=== PATIENT | female | born 1955 | race Caucasian/White ===

== ENCOUNTER → 2024-05-05 08:25 | Outpatient (REF) | payer MEDICARE, OTHER, SELFPAY ==
[2024-05-05 12:32] LABS: Vitamin D, 25-OH*** 41.6 ng/mL (30-80)
== END ==
LOC: HWWDC 08:25
PROVIDERS: ATTENDING PHYSICIAN Obstetrics & Gynecology; FAMILY PHYSICIAN Family Medicine
DX: Z12.31 Encounter for screening mammogram for malignant neoplasm of breast (principal); Z78.0 Asymptomatic menopausal state; E55.9 Vitamin D deficiency, unspecified
CPT/HCPCS: 36415; 77063; 77067; 82306

== ENCOUNTER 2024-12-12 06:00 | Day surgery (SDC) | payer MEDICARE, OTHER, SELFPAY ==
--- NOTE | 2024-11-15 10:55 | CM ---
CM reviewed medical records. CM confirmed demographics. Patient lives independently with . Patient denies history of VN< SNF or DME> Patient is active with her PCP. Patient uses [facility] for medication services. Patient does have a
walker, cane and plans to purchase a ice machine.
Patient has called [facility] in [place] to arrange for outpatient PT therapies.
CM will remain available for patient as questions arise.
PLAN: Home with VN, and then transition to outpatient PT.
[2024-11-23 11:41] LABS: Hematocrit 34.9 % (37.0-47.0); Hemoglobin 11.6 g/dL (12.0-16.0); Mean Corp Hgb Conc. 33.2 g/dL (33.0-37.0); Mean Corpuscular Hgb 30.9 pg (27.0-31.0); Mean Corpuscular Volume 92.8 fL (81.0-99.0); Mean Platelet Volume 10.6 fL (7.4-10.4); Platelet Count 269 10^3/uL (130-400); Red Blood Cell Count 3.76 10^6/uL (4.20-5.40); Red Cell Dist. Width 13.5 % (11.5-14.5); White Blood Cell Count 5.3 10^3/uL (4.8-10.8)
[2024-11-23 12:46] LABS: ALT (SGPT) 19 U/L (0-35); AST (SGOT) 23 U/L (14-36); Albumin 4.1 g/dl (3.5-5.0); Alkaline Phosphatase 59 U/L (38-126); Blood Urea Nitrogen 24 mg/dl (7-17); Calcium 9.3 mg/dl (8.4-10.2); Carbon Dioxide 28 mmol/L (22-30); Chloride 107 mmol/L (98-107); Glucose 129 mg/dl (70-99); Potassium 4.1 mmol/L (3.5-5.1); Sodium 142 mmol/L (135-145); Total Bilirubin 0.7 mg/dl (0.2-1.3); Total Protein 6.7 g/dl (6.3-8.2); eGFR > 60.00
[2024-11-23 12:54] LABS: Glycohemoglobin (HgbA1c) 5.4 % (4.0-5.6)
[2024-11-23 13:37] VITALS: BMI 40.7
[2024-11-23 14:17] VITALS: BMI 40.7
--- NOTE | 2024-11-28 15:42 | VNURNOTE ---
Patient is scheduled for an elective R TKR on 12/12 - she is a same day patient with Dr Steinberg. Spoke with patient prior to surgery. Introduced role of [facility] Liaison. Patient reports that she lives with her spouse.
Discussed [facility] joint protocol and post surgical plans.
Reviewed that she will have VN services initially and will then start outpatient PT.
Patient selects [facility] for home care needs and will go to [facility] for outpatient PT. Scheduled for 12/15 .
Patient is in agreement with plan and states that her spouse and son will be home with her. Advised to bring RW with her day of surgery. Referral placed in [facility].
Plan: [facility] per [facility] joint protocol on 12/12 then outpt PT on 12/15
[2024-12-12] VITALS (24 sets, daily range): BP systolic 107–182; BP diastolic 46–90; PULSE 86; O2SAT 98; BMI 40.7
[2024-12-12] MEDS: CELEBREX 200 MG PO (06:19)
[2024-12-12] MEDS: TYLENOL 650 MG PO ×2 (06:19→20:43)
[2024-12-12] MEDS: NORMOSOL-R/PLASMALYTE-A 1000 IV ×2 (06:20→20:47)
[2024-12-12 06:39] LABS: Glucose - Point of Care 128 mg/dl (70-99)
[2024-12-12] MEDS: DILAUDID 0.5 MG IV (09:13)
[2024-12-12] MEDS: DILAUDID 0.25 MG IV (09:32)
[2024-12-12] MEDS: ZOFRAN 4 MG IV ×2 (10:26→20:02)
[2024-12-12] MEDS: ANCEF 5 IV ×2 (11:57→20:42)
[2024-12-12] MEDS: DUONEB 3 ML INH (12:45)
[2024-12-12] MEDS: NSS (PRESERVATIVE FREE) 10 ML IV (12:59)
[2024-12-12] MEDS: PROTONIX IV 40 MG IV (13:00)
--- NOTE | 2024-12-12 13:42 | PTCARENOTE ---
Bibiana Greer PA in to see patient and after speaking with patient informed nursing that patient will be admitted to hospital. Tucker with physical therapy made aware. Patient dozing intermittently, call chan within reach.
[2024-12-12] MEDS: TYLENOL 1000 MG PO (16:11)
--- NOTE | 2024-12-12 18:56 | TRANSFER ---
pt transferred to room 2118 via stretcher with all belongings in no acute distress. SR on portable monitor. report given to KOTA Menchaca
[2024-12-12] MEDS: COMPAZINE PO (20:41)
[2024-12-12] MEDS: FLUSH (NSS) 2 FLUSH IV (20:42)
[2024-12-12] MEDS: SENOKOT 17.2 MG PO (20:43)
[2024-12-12] MEDS: DECADRON 4 MG PO (20:44)
[2024-12-12] MEDS: BACTROBAN 2% OINTMENT 2 APPLIC NASAL (20:44)
[2024-12-12] MEDS: COLACE 100 MG PO (20:44)
[2024-12-12] MEDS: ASPIRIN 325 MG PO (20:45)
[2024-12-12] MEDS: NEURONTIN 300 MG PO (21:07)
[2024-12-12] MEDS: COMPAZINE 5 MG PO (21:07)
[2024-12-12] MEDS: PEPCID 20 MG PO (21:07)
[2024-12-12] MEDS: ROXICODONE 5 MG PO (21:07)
[2024-12-13] MEDS: TYLENOL PO ×3 (00:41→04:06)
[2024-12-13 03:15] VITALS: BP 112/74
[2024-12-13] MEDS: ANCEF 5 IV (03:53)
[2024-12-13] MEDS: FLUSH (NSS) 2 FLUSH IV (03:55)
[2024-12-13] MEDS: SYNTHROID 50 MCG PO (06:32)
[2024-12-13] MEDS: ROXICODONE 5 MG PO (06:33)
[2024-12-13] MEDS: SENOKOT 17.2 MG PO (07:50)
[2024-12-13] MEDS: ASPIRIN 325 MG PO (07:50)
[2024-12-13] MEDS: COLACE 100 MG PO (07:50)
[2024-12-13] MEDS: VITAMIN D3 (cholecalciferol) 25 MCG PO (07:50)
[2024-12-13] MEDS: CELEBREX 200 MG PO (07:50)
[2024-12-13] MEDS: BACTROBAN 2% OINTMENT 1 APPLIC NASAL (07:50)
[2024-12-13] MEDS: COMPAZINE 5 MG PO ×2 (07:50→07:54)
[2024-12-13] MEDS: TYLENOL 650 MG PO ×2 (07:50→11:16)
[2024-12-13] MEDS: DECADRON 4 MG PO (07:51)
[2024-12-13] MEDS: BENICAR 20 MG PO (07:54)
[2024-12-13] MEDS: ORETIC 12.5 MG PO (07:54)
[2024-12-13 08:00] VITALS: BP 128/67
[2024-12-13 11:45] VITALS: BP 163/87
--- NOTE | 2024-12-13 11:54 | W.PN.ORTHO ---
Today's Communication / Plan
-
Await PT and OT recs.
D/c later today if remaining clinically stable.
Assessment
.
Distal Motor Intact: Yes
Dressing:
Scant areas of old incisional bleeding. Dressing otherwise C/D/I.
Assessment:
R knee OA s/p R TKA w/ Dr Steinberg 12/12/24
DVT prophylaxis - ASA, b/l venous foot pumps
PONV - improved w/ Compazine and minimization of narcotics - will Rx per pt preference upon d/c
PACs, asymptomatic, and NSTEMI 2011 - maintaining NSR w/ 1st deg AV block on tele
Chronic bronchitis with asthmatic component - O2 sats stable currently
- IS
Morbid obesity, BMI 40.7 - will Rx Cefadroxil for joint prophylaxis
Hypercholesterolemia.
Colon polyps.
Diverticulosis.
Remote vertigo.
Lumbar degenerative disc disease.
Hypothyroidism.
Breast cysts.
Bilateral heel spurs.
COVID-19 06/2020, status post monoclonal antibodies.
Bilateral cataracts.
Osteopenia.
Mild anemia
Remote history of tobacco abuse
Plan
.
Surgery / Date: R TKA w/ Dr Steinberg 12/12/24
DVT Prophylaxis: Aspirin
Activity:
Out of bed.
PT/OT
Discharge Plan: Home w/ Outpatient PT
Subjective
.
.:
Patient resting in bed this AM.
Does report R knee pain which has been tolerable w/ Oxycodone prn.
N/V improved from yesterday w/ Compazine.
Denies any acute complaints.
Eager for potential d/c today.
Vital Signs and Labs
.
Vital Signs and Labs:
Lab Results
11/23/24 11:05
11/23/24 11:05
Temp Pulse Resp BP Pulse Ox
98.1 F 90 16 128/67 91
12/13/24 08:00 12/13/24 08:00 12/13/24 08:00 12/13/24 08:00 12/13/24 08:00
Non-invasive Hgb result: 12.9
Physical Exam
-
HEENT: No pallor, cyanosis, or jaundice. Throat clear.
NECK: Supple. No JVD.
RESPIRATORY: Lungs clear to auscultation.
CVS: S1, S2 normal. RRR.
ABDOMEN: Soft, non-tender. No distension. Morbidly obese.
EXTREMITIES: Post-surgical R knee edema. Strength equal, no calf pain with palpation/dorsiflexion. Calves soft.
INSPECTOR OF DREDGING: AOx3. No focal deficits. core driller helper grossly intact
--- NOTE | 2024-12-13 12:03 | W.DS.TRANS ---
DC Summary - Ice Scraper
-
Discharge Instructions:
Sleep Apnea Risk Intermediate
Discharge Diagnosis/Procedures R knee OA s/p R TKA w/ Dr Steinberg 12/12/24
Diet Regular
Additional Diets Adequate hydration, minimize opioids, and wear
TEDs stockings to prevent low blood pressure/
dizziness.
Activity As tolerated,With Walker
Driving Restrictions Not until seen by your Dr
Bathing Restrictions OK to Shower
Other Services PT,VN
Wound Care Dressing to be removed 1 week post-surgery.
Simms to be removed at 2 week follow-up with
surgeon's office.
Instructions:
Stand-Alone Forms: SDS Total Hip and Knee D/C
Changes to Home Medications: Yes
Discharge Medications:
DC Medications w/original date entered in [email or web address]
levothyroxine 50 mcg tablet 50 mcg PO DAILY 08/06/21
multivitamin with folic acid 400 mcg tablet (Tab-A-Jose) 1 tab PO DAILY 08/06/21
cholecalciferol (vitamin D3) 25 mcg (1,000 unit) tablet (Vitamin D3) 25 mcg PO DAILY 11/22/24
tirzepatide 10 mg/0.5 mL subcutaneous pen injector (Mounjaro) 10 mg SC QWEEK 11/22/24
zinc acetate 50 mg (zinc) capsule 50 mg PO DAILY 11/22/24
cefadroxil 500 mg capsule 500 mg PO BID infection prevention #14 caps 11/23/24
celecoxib 200 mg capsule 200 mg PO DAILY Anti-inflammatory #14 caps 11/23/24
dexamethasone 4 mg tablet 4 mg PO BID inflammation #6 tabs 11/23/24
famotidine 20 mg tablet 20 mg PO HS GI prophylaxis #30 tabs 11/23/24
gabapentin 300 mg capsule 300 mg PO HS sleep/pain #10 caps 11/23/24
mupirocin 2 % topical ointment 1 applic topical BID infection prevention #1 tube 11/23/24
oxycodone 5 mg tablet 5 mg PO Q6H PRN 1 tab moderate pain, 2 tabs severe pain #30 tabs 11/23/24
Saccharomyces boulardii 250 mg capsule (Florastor) 250 mg PO BID #14 caps 12/12/24
acetaminophen 500 mg tablet (Acetaminophen Extra Strength) 1,000 mg (2 x 500 mg) PO Q6H #60 tabs 12/12/24
aspirin 325 mg tablet 325 mg PO DAILY #30 tabs 12/12/24
docusate sodium 100 mg capsule (Colace) 100 mg PO BID #30 caps 12/12/24
sennosides 8.6 mg capsule (senna) 17.2 mg (2 x 8.6 mg) PO BID #30 caps 12/12/24
olmesartan 20 mg-hydrochlorothiazide 12.5 mg tablet 1 tab PO NOON #1 tab 12/13/24
prochlorperazine maleate 5 mg tablet 5 mg PO TID PRN nausea and vomiting #30 tabs 12/13/24
Home Medication Changes
cefadroxil 500 mg capsule 500 mg PO BID infection prevention #14 caps 11/23/24
celecoxib 200 mg capsule 200 mg PO DAILY Anti-inflammatory #14 caps 11/23/24
dexamethasone 4 mg tablet 4 mg PO BID inflammation #6 tabs 11/23/24
famotidine 20 mg tablet 20 mg PO HS GI prophylaxis #30 tabs 11/23/24
gabapentin 300 mg capsule 300 mg PO HS sleep/pain #10 caps 11/23/24
mupirocin 2 % topical ointment 1 applic topical BID infection prevention #1 tube 11/23/24
oxycodone 5 mg tablet 5 mg PO Q6H PRN 1 tab moderate pain, 2 tabs severe pain #30 tabs 11/23/24
Saccharomyces boulardii 250 mg capsule (Florastor) 250 mg PO BID #14 caps 12/12/24
acetaminophen 500 mg tablet (Acetaminophen Extra Strength) 1,000 mg (2 x 500 mg) PO Q6H #60 tabs 12/12/24
aspirin 325 mg tablet 325 mg PO DAILY #30 tabs 12/12/24
docusate sodium 100 mg capsule (Colace) 100 mg PO BID #30 caps 12/12/24
sennosides 8.6 mg capsule (senna) 17.2 mg (2 x 8.6 mg) PO BID #30 caps 12/12/24
prochlorperazine maleate 5 mg tablet 5 mg PO TID PRN nausea and vomiting #30 tabs 12/13/24
Pending Results: No
== END 2024-12-13 13:18 | disposition home health service (06) ==
LOC: SDS 06:00
PROVIDERS: ATTENDING PHYSICIAN Specialist; FAMILY PHYSICIAN Family Medicine; OTHER PHYSICIAN Internal Medicine Cardiovascular Disease; OTHER PHYSICIAN Physician Assistant Medical
DX: M17.11 Unilateral primary osteoarthritis, right knee (principal); M51.369 Other intervertebral disc degeneration, lumbar region without mention of lumbar back pain or lower extremity pain; E66.01 Morbid (severe) obesity due to excess calories; Z68.41 Body mass index [BMI] 40.0-44.9, adult; Z87.891 Personal history of nicotine dependence
CPT/HCPCS: 27447; C1776; 36415; 73560; 80053; 82962; 83036; 85027; 86850; 86900; 86901; 87070; 93005; 94640; 97110; 97116; 97162; 97166; 97535; C1713